=== PATIENT | female | born 1960 | race Caucasian/White ===

== ENCOUNTER → 2018-08-16 | Day surgery (SDC) | payer OTHER ==
[~2018-08-16] VITALS: Ht 172.7 cm; Wt 68.9 kg
--- NOTE | 2018-08-16 14:36 | Operative Report ---
Operative/Inv Procedure Report Surgery Date: 08/16/18 Name of Procedure: Efren flap left breast revision reconstructed left breast would release pectoralis muscle placement tissue network internship placement Flex HD dermal template. 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 Post-Operative Diagnosis: Same Estimated Blood Loss: 50ml to 100ml Surgeon/Neurology Teacher: Roderick Powell MD Anesthesia: laryngeal mask airway Operative/Procedure Note Note: Patient was counseled extensively in regards to the procedure the alternatives the risks and expected outcomes as relates to request for surgical intervention 2 reconstructed left breast. The patient has had failed reconstructions due to infection. She is requesting tissue network internship placement with the use of a dermal template as discussed by me and accepted by her. We talked about using a previous scar as our access point releasing the muscle from scar elevating it as well as it from the overlying soft tissue and attaching it to AlloDerm direction to a flex HD inferior sling. We talked about drains being placed as well we talked about the risks including loss of the flap ischemia open wounds need for explantation pain numbness hematoma seroma infection and bleeding. Once agreed she was marked in the standing position. She was then brought to the operating room after signing informed consent. She was placed supine on the table Venodyne boots were placed laryngeal mask anesthesia was established and the chest was prepped and draped in usual sterile fashion. A nipple cover was placed and Ioban dressing was used around the periphery. Incision was made above the superior aspect of the previous latissimus skin flap. This was dissected down to a very scarred pectoralis muscle. The muscle was from the overlying skin of an extensive nature. Scar was removed in bulk where necessary. The flap correction the pectoralis muscle was elevated to the clavicle and laterally. Inferiorly where the previous plaque flap was placed was revised using a Efren flap with the use of imbricating sutures of the lower scar position of the latissimus flap. This provided a good inframammary fold. After debulking some of the pedicle from the latissimus due to excess subcutaneous tissue the pocket was irrigated multiple times of note with antibiotic and Betadine solution. Local anesthesia was injected in the operative site. 2 drains were placed laterally one above and below the pectoralis and Flex HD. The flex HD was then placed sutured to the inferior edge of the pectoralis after being completely freed. A 650 mill tissue network internship was placed in the pocket. It was closed again helping to define the inframammary fold. 320 cc was placed without undue tension in the skin and skin was closed in multiple layers. End dictation
== END ==
LOC: STS 07:00
DX: Z85.3 Personal history of malignant neoplasm of breast (principal); Z90.12 Acquired absence of left breast and nipple; N64.89 Other specified disorders of breast; Z86.14 Personal history of Methicillin resistant Staphylococcus aureus infection
CPT/HCPCS: J0131; J2250; J3490; Q4128